=== PATIENT | female | born 1955 | race Caucasian/White ===

== ENCOUNTER 2017-01-16 05:26 | Observation (INO) | payer OTHER ==
[2017-01-16] VITALS (13 sets, daily range): BP systolic 95–125; BP diastolic 46–73; PULSE 72–88; RESP 14–22; Ht 160 cm; Wt 88.7 kg
[~2017-01-16] VITALS: Ht 160 cm; Wt 88.7 kg
[2017-01-16] MEDS ORDERED: LORA-441 PO (05:51)
[2017-01-16] MEDS ORDERED: HYDR-902 PO (05:51)
[2017-01-16] MEDS ORDERED: ZOLP10TA PO (05:51)
[2017-01-16] MEDS ORDERED: TEMA30CA6 PO (05:51)
[2017-01-16] MEDS ORDERED: GLYCOPYRROLATE 1 MG INJ ONE (06:15)
[2017-01-16] MEDS ORDERED: ROCURONIUM 50 MG INJ ONE ×2 (06:15→07:00)
[2017-01-16] MEDS ORDERED: LIDOCAINE 2% (SDV) 5 ML INJ ONE (06:15)
[2017-01-16] MEDS ORDERED: ONDANSETRON 4 MG INJ ONE (06:16)
[2017-01-16] MEDS ORDERED: MIDAZOLAM 1 MG/ML 2 ML INJ ONE (06:16)
[2017-01-16] MEDS ORDERED: NEOSTIGMINE 3 MG/3 ML SYRINGE ONE (06:16)
[2017-01-16] MEDS ORDERED: DEXAMETHASONE 4 MG/ML 1 ML INJ ONE (06:16)
[2017-01-16] MEDS ORDERED: PROPOFOL 20 ML ONE (06:16)
[2017-01-16] MEDS ORDERED: FENTAnyl 50 MCG/ML VIAL ONE ×2 (06:16→12:51)
[2017-01-16] MEDS ORDERED: LIDOCAINE 2%/EPI 30 ML INJ ONE (06:17)
[2017-01-16] MEDS ORDERED: ROPIVACAINE 0.5 % 30 ML VIAL ONE ×2 (06:17→07:04)
[2017-01-16] MEDS ORDERED: SUGAMMADEX SODIUM 200 MG/2 ML VIAL IV ONE (06:19)
[2017-01-16] MEDS ORDERED: MEPERIDINE 25 MG INJ IV PRN (07:00)
[2017-01-16] MEDS ORDERED: HYDROmorphONE (0.2 MG/ML) 10ML SYG IV PRN ×3 (07:00)
[2017-01-16] MEDS ORDERED: ONDANSETRON 4 MG INJ IV PRN ×2 (07:00→12:30)
[2017-01-16] MEDS ORDERED: morphine (1 MG/ML) 10ML SYRINGE IV PRN ×3 (07:00)
[2017-01-16] MEDS ORDERED: hydrALAzine 20 MG INJ IV PRN (07:00)
[2017-01-16] MEDS ORDERED: DIPHENHYDRAMINE 50 MG INJ IV PRN (07:00)
[2017-01-16] MEDS ORDERED: LABETALOL HCL 20MG INJ IV PRN (07:00)
[2017-01-16] MEDS ORDERED: FENTAnyl 50 MCG/ML VIAL IV PRN ×2 (07:00)
[2017-01-16] MEDS ORDERED: CEFAZOLIN 1 GM INJ ONE (07:00)
[2017-01-16] MEDS ORDERED: MIDAZOLAM 1 MG/ML 2 ML INJ IV PRN (07:00)
[2017-01-16] MEDS ORDERED: EPHEDrine SULFATE 50 MG/5 ML SYG IV PRN (07:00)
[2017-01-16] MEDS ORDERED: LACTATED RINGER'S 1,000 ML IV SCH (07:00)
[2017-01-16] MEDS ORDERED: ATROPINE 1 MG/10 ML SYRINGE IV PRN (07:00)
[2017-01-16] MEDS ORDERED: OXYCODONE/ACETAMINOPHEN (5/325) TAB PO PRN ×2 (07:00)
[2017-01-16] MEDS ORDERED: POVIDONE IODINE 10% 28.4 GM OINT ONE (07:04)
[2017-01-16] MEDS ORDERED: POLYMYXIN/BACITRACIN 1L IRRIG ONE (07:04)
[2017-01-16] MEDS ORDERED: METHYLENE BLUE 1% 10 ML INJ ONE (07:04)
--- NOTE | 2017-01-16 07:09 | HPN ---
Date/Time of Note Date/Time of Note DATE: 01/16/17 TIME: 07:09 Interval H&P Admission Note Pt. seen H&P reviewed: No system changes ADILSON MENCHACA MD Jan 16, 2017 07:09
[2017-01-16] MEDS ORDERED: LABETALOL HCL 20MG INJ ONE (10:47)
[2017-01-16] MEDS ORDERED: hydrALAzine 20 MG INJ ONE (10:55)
--- NOTE | 2017-01-16 12:29 | OPPN ---
Date/Time of Note Date/Time of Note DATE: 01/16/17 TIME: 12:27 Operative Report Preoperative Diagnosis Left ankle PTT insufficiency Postoperative Diagnosis same Operation/Procedure Performed Left medial sliding calcaneal osteotomy FDL to navicular transfer PTT tenodesis to FDL spring ligament reefing Provider: ADILSON MENCHACA MD career services assistant: JAIME DAVIDSON MD Anesthesia: general Estimated blood loss: 10 - 50 ml's Specimens PTT tendon Grafts/Implants Synthes 4.5mm cannulated screw x 1, 7.3mm cannulated screw x 1 Complications: None ADILSON MENCHACA MD Jan 16, 2017 12:29
[2017-01-16] MEDS ORDERED: CEFAZOLIN 1 GM INJ IV SCH (12:30)
[2017-01-16] MEDS ORDERED: BISACODYL 10 MG SUPP PR PRN (12:30)
[2017-01-16] MEDS ORDERED: DIPHENHYDRAMINE 25 MG CAP PO PRN (12:30)
[2017-01-16] MEDS: CEFAZOLIN 2 GM/50 ML (PMX) 50 ML IVPB SCH ×2 (13:19→21:00)
[2017-01-16] MEDS: HYDROmorphONE 0.2 MG/ML PCA IV SCH (13:21)
--- NOTE | 2017-01-16 13:30 | RADRPT ---
PROCEDURE: Intraoperative imaging of the left foot with fluoroscopy. CLINICAL INDICATION: Left foot pain. Intraoperative. TECHNIQUE: 6 images of the left foot were obtained in the operating room with an image intensifier . No radiologist was in attendance. Fluoroscopy time is 0.5 minutes. COMPARISON: No prior study is available for comparison. FINDINGS: Images demonstrate osteotomy of the posterior calcaneus with final images demonstrate 2 cannulated s crews transfixing the osteotomy. IMPRESSION: 1. Intraoperative imaging of the left foot. RPTAT: QQ .Lewis Mann MD, Date Time Electronically viewed and signed by .Lewis Mann MD, on 01/16/2017 13:29 .R/
--- NOTE | 2017-01-16 15:02 | OPR ---
DATE OF OPERATION: 01/16/2017 PREOPERATIVE DIAGNOSES: 1. Severe tear of left posterior tibial tendon. 2. Planovalgus foot. 3. Tear to the spring ligament talonavicular capsule. POSTOPERATIVE DIAGNOSES: 1. Severe tear of left posterior tibial tendon. 2. Planovalgus foot. 3. Tear to the spring ligament talonavicular capsule. OPERATIONS PERFORMED: 1. Left medial slide calcaneal osteotomy with screw fixation. 2. Left debridement of the posterior tibial tendon. Significant tear with excision of a large portion of it and tenodesed the rest to the FDL. 3. Left flexor digitorum longus transfer to the navicular. 4. Reefing the spring ligament and talonavicular capsule. 5. Use of fluoroscopy to verify position and alignment of the calcaneal osteotomy and screws. 6. Short-leg cast. SURGEON: Dr. Gabriele Ramos. MOTION GRAPHICS DESIGNER: Dr. Ruddy Vasquez. ANESTHESIA: General with a popliteal block. TOURNIQUET TIME: 1. 1-40. 2. 2-97. OPERATIVE PROCEDURE: Patient taken to the operating room placed supine under satisfactory popliteal block was given and satisfactory general anesthesia administered, 2 g of Ancef was given intravenously. The patient was rolled in the right lateral decubitus position and secured with a kelly bag. Everything was carefully padded. The left foot was prepped and draped in usual manner. A guide pin was used to shawn the appropriate incision 45 degrees angle in the heel and dissection carried down subcutaneous tissue. Bleeders coagulated as encountered. Went down to the actual calcaneal bone. Periosteum was marked with methylene blue using the fluoroscope. An oscillating saw was used to perform a calcaneal osteotomy prior to going through the medial side using the thin osteotome to carefully go through being very careful not to injure the neurovascular structures. The heel was then shifted 8 mm and fixated with one 4.5 cannulated AO screw and one 7.3 cannulated screw. AP and lateral x-ray showed good position and alignment of the screws and of the osteotomy. Final fluoroscopic views looked good on the AP and lateral planes. The wounds irrigated antibiotic solution. A power rasp was used to smooth the edges. The tourniquet was released areas were coagulated and wounds were closed with 3-0 undyed Vicryl, skin with 4-0 black nylon. The wounds were then closed by me. Wounds were then covered sterilely and the second part of the surgery was repaired. The patient was rolled in the supine position. The beanbag was removed. The patient was positioned appropriately. The left leg was then prepped and draped in the usual manner. The tourniquet had been down for 35 minutes. Tourniquet was inflated to 250 mmHg. Incision was made 3 cm above[____] towards the area of the first MTP joint over the posterior tibial tendon. Dissection carried down subcutaneous tissue. Bleeders were coagulated as encountered. The flaps were made with 3-0 undyed Vicryl retracting. Incision was made in the posterior tibial tendon sheath and a lot of fluid came out. The tendon sheath was opened. The tendon was torn severely until was more proximal. The tendon was cut leaving a stump on the navicular and cut proximally, marked with 0 PDS. The FDL was identified in its own tendon sheath. The adductor hallucis was then off the medial plantar border of the foot from the Livan's knot to the MTP joint. Deep tissues were divided, the area where the FDL and FHL crossed was freed up, all the communicating fibers were freed up. Distally the FDL was closed to the FHL with 0 FiberWire with the toes in neutral position. The FDL was then cut and brought out of the wound. The tendon was then sutured with 0 FiberWire. The talonavicular capsule and spring ligament were opened and 0 PDS was placed in a [id number] fashion in these areas, however, they were not tied. Using the guide pin for the 4.0 AO cannulated screw set the guide pin was inserted through the center of the navicular and wired and the 4-5 set was used to enlarge the hole to 4.5 mm. A Hewson suture was passed dorsal plantar, the tendon was brought through the posterior tibial tendon sheath and through the hole in the navicular. The tendon sheath was then closed partially along the medial malleolus with 2-0 PDS so the tendon would not bowstring. Foot was then plantar flexed and inverted. The tendon was then pulled taut with the foot inverted and plantar flexed and 0 FiberWire was used to secure the tendon in the remaining posterior tibial tendon and periosteum. Excellent fixation was obtained. Wounds were irrigated repeatedly with antibiotic solution. The talonavicular capsule was closed with the foot plantar flexed and inverted as was the spring ligament. The healthier portion of the posterior tibial tendon was tenodesed to the FDL with 0 PDS. Tendons were closed with 2-0 PDS running distally, and then in 2-0 PDS distally. The tourniquet was released prior to closing the distal wound. All bleeders were coagulated. Wounds irrigated with antibiotic solution. There was good hemostasis in the knot of Livan. The subcutaneous tissue was closed with 3-0 undyed Vicryl. The skin was closed was with 4-0 black nylon. A saphenous nerve block with 0.5 percent ropivacaine, compression dressing applied, as well as short-leg cast in plantar flexion and inversion. At the end of the procedure the sponge, needle count was correct. The patient tolerated procedure well and brought to recovery room after the cast was split. Dictated By: Gabriele Ramos MD /tegan/srini /Document#: [id number]
[2017-01-16] MEDS: SOD CHLORIDE 0.9% 1,000 ML IV SCH ×2 (19:10→22:24)
[2017-01-16] MEDS: SENNA/DOCUSATE NA (8.6MG/50MG) TAB PO SCH (21:00)
[2017-01-17 02:00] VITALS: BP 120/58; RESP 18
[2017-01-17] MEDS ORDERED: ZOLPIDEM 5 MG TAB PO PRN ×2 (02:30→21:00)
[2017-01-17] MEDS: OXYCODONE/ACETAMINOPHEN (5/325) TAB PO PRN ×3 (02:37→13:43)
[2017-01-17] MEDS: HYDROmorphONE 0.2 MG/ML PCA IV SCH (03:30)
[2017-01-17] MEDS: CEFAZOLIN 2 GM/50 ML (PMX) 50 ML IVPB SCH ×3 (05:07→20:47)
[2017-01-17] MEDS: morphine 10 MG INJ IV PRN ×3 (05:08→20:44)
[2017-01-17] MEDS: SOD CHLORIDE 0.9% 1,000 ML IV SCH ×2 (05:14→18:17)
[2017-01-17 07:45] VITALS: BP 122/68; RESP 19
--- NOTE | 2017-01-17 08:36 | PN ---
Date/Time of Note Date/Time of Note DATE: 01/17/17 TIME: 08:29 Assessment/Plan VTE Prophylaxis VTE Prophylaxis Intervention: SCD's Lines/Catheters IV Catheter Type (from Nrsg): Peripheral IV Assessment/Plan Chief Complaint/Hosp Course Left foot/ankle acquired planovalgus deformity. Problems: Assessment/Plan 61 yo F s/p left flatfoot reconstruction on 01/16/2017 for acquired planovalgus foot deformity Doing well overall. - Continue po pain control - Continue LLE elevation - DVT prophy - PT - Dispo: Discharge home when clears PT Subjective 24 Hr Interval Summary Free Text/Dictation Patient resting in bed this morning complaining of left lower extremity pain that started early this morning after her block wore off. She denies shortness of breath, chest pain, or lower extremity numbness/tingling. She otherwise is without complaints. Constitutional: no complaints Respiratory: no complaints Cardiovascular: no complaints Gastrointestinal: no complaints Exam/Review of Systems Vital Signs Vitals Vital Signs Date Time Temp Pulse Resp B/P Pulse Ox O2 Delivery O2 Flow Rate FiO2 01/17/17 07:45 97.8 81 19 122/68 98 01/16/17 20:00 Nasal Cannula 2.0 Intake and Output 01/16/17 01/16/17 01/17/17 15:00 23:00 07:00 Intake Total 1500 ml 530 ml 1470 ml Output Total 50 ml 520 ml 1200 ml Balance 1450 ml 10 ml 270 ml Exam In general patient resting comfortably in hospital bed in no acute distress. Breathing comfortably on room air. Focused examination of LLE: Elevated on pillows. Short leg cast in place. Patient reports sensation intact to light touch throughout. She is able to wiggle her toes. Toes warm and well perfused. Medications Medications Current Medications Senna/Docusate Sodium (Senokot-S) 1 tab BID PO Last administered on 01/16/17 21:00; Admin Dose 1 TAB; Start 01/16/17 at 21:00 Magnesium Hydroxide (Milk Of Mag) 30 ml HS PO ; Start 01/18/17 at 21:00 Bisacodyl 10 mg 10 mg DAILY PRN [place] CONSTIPATION; Start 01/16/17 at 12:30 Sodium Chloride (NS) 1,000 ml @ 100 mls/hr Q10H IV Last administered on 05:14; Admin Dose 100 MLS/HR; Start 01/16/17 at 12:24 Oxycodone/ Acetaminophen (Percocet (5/ 325)) 2 tab Q4H PRN PO PAIN Last administered on 01/17/17 02:37; Admin Dose 2 TAB; Start 01/16/17 at 12:30 Morphine Sulfate (morphine) 5 mg Q4H PRN IV PAIN LEVEL 7-10 Last administered on 01/17/17 05:08; Admin Dose 5 MG; Start 01/16/17 at 12:30 Ondansetron HCl (Zofran Inj) 4 mg Q4H PRN IV NAUSEA AND/OR VOMITING; Start at 12:30 Diphenhydramine HCl (Benadryl) 25 mg Q4H PRN PO ITCHING Last administered on 23:18; Admin Dose 25 MG; Start 01/16/17 at 12:30 Hydromorphone HCl 0.2 mg 0.2 mg Q4PCA IV Last administered on 01/17/17 03:30; Admin Dose 6 MG; Start 01/16/17 at 12:30 Cefazolin Sodium/ Dextrose (Ancef 2 Gm/50 ml (Pmx)) 50 ml @ 100 mls/hr Q8H IVPB Last administered on 01/17/17 05:07; Admin Dose 100 MLS/HR; Start at 13:00; Stop 01/18/17 at 05:29 Zolpidem Tartrate (Ambien) 10 mg HS PRN PO INSOMNIA; Start 01/17/17 at 21:00 ADILSON MENCHACA MD Jan 17, 2017 08:36
[2017-01-17] MEDS: SENNA/DOCUSATE NA (8.6MG/50MG) TAB PO SCH ×2 (08:57→20:45)
[2017-01-17 14:40] VITALS: BP 120/67; RESP 19
[2017-01-17] MEDS: RIVAROXABAN 10 MG TABLET PO SCH (18:14)
[2017-01-17] MEDS: OXYCODONE/ACETAMINOPHEN (10/325) TAB PO PRN (18:14)
[2017-01-17 19:59] VITALS: BP 137/65; RESP 20
--- NOTE | 2017-01-18 01:32 | OPR ---
DATE OF OPERATION: 01/16/2017 ADDENDUM The missing word in the operative report is medial malleolus. PSYCHOLOGIST EDUCATIONAL: Orthopedic surgeon. During the, surgery teacher orthopedic surgeon was used at my request. The blood donor unit assistant helped by putting the screws in while I held the calcaneal osteotomy reduced. In addition, the blood donor unit assistant tied in the flexor tendon while I held the foot plantar flexed and inverted. Without a skilled orthopedic surgeon blood donor unit assistant, this procedure could not be done and they should be compensated appropriately. Dictated By: Gabriele Ramos MD /tegan/patience /Document#: [id number]
[2017-01-18 02:33] VITALS: BP 132/60; RESP 18
[2017-01-18] MEDS: SOD CHLORIDE 0.9% 1,000 ML IV SCH ×2 (04:24→14:03)
[2017-01-18] MEDS: CEFAZOLIN 2 GM/50 ML (PMX) 50 ML IVPB SCH (05:00)
--- NOTE | 2017-01-18 06:49 | PN ---
Date/Time of Note Date/Time of Note DATE: 01/18/17 TIME: 06:46 Assessment/Plan VTE Prophylaxis VTE Prophylaxis Intervention: ambulation, SCD's Lines/Catheters IV Catheter Type (from Nrsg): Peripheral IV Urinary Cath still in place: No Assessment/Plan Chief Complaint/Hosp Course Left foot/ankle acquired planovalgus deformity. Problems: Assessment/Plan 61 yo F s/p left flatfoot reconstruction on 01/16/2017 for acquired planovalgus foot deformity Doing well overall. 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 Pain well controlled. Denies nausea/vomiting, chest pain, or SOB. Would like to go home today if clears PT. Constitutional: no complaints Respiratory: no complaints Cardiovascular: no complaints Gastrointestinal: no complaints Neurologic: no complaints Exam/Review of Systems Vital Signs Vitals Vital Signs Date Time Temp Pulse Resp B/P Pulse Ox O2 Delivery O2 Flow Rate FiO2 01/18/17 05:00 18 01/18/17 02:33 98.2 132/60 98 01/17/17 20:35 Nasal Cannula 2.0 01/17/17 19:59 80 Intake and Output 01/17/17 01/17/17 01/18/17 15:00 23:00 07:00 Intake Total 50 ml 2130 ml 1680 ml Output Total 1000 ml 1600 ml Balance 50 ml 1130 ml 80 ml Exam In general in NAD. Resting comfortably in bed with leg elevated. LLE: Short leg cast in place. Elevated. Patient able to wiggle toes. SILT in toes distally. Toes warm and well perfused. Medications Medications Current Medications Senna/Docusate Sodium (Senokot-S) 1 tab BID PO Last administered on 01/17/17 20 :45; Admin Dose 1 TAB; Start 01/16/17 at 21:00 Magnesium Hydroxide (Milk Of Mag) 30 ml HS PO ; Start 01/18/17 at 21:00 Bisacodyl 10 mg 10 mg DAILY PRN [place] CONSTIPATION; Start 01/16/17 at 12:30 Sodium Chloride (NS) 1,000 ml @ 100 mls/hr Q10H IV Last administered on 18:17; Admin Dose 100 MLS/HR; Start 01/16/17 at 12:24 Morphine Sulfate (morphine) 5 mg Q4H PRN IV PAIN LEVEL 7-10 Last administered on 01/17/17 20:44; Admin Dose 5 MG; Start 01/16/17 at 12:30 Ondansetron HCl (Zofran Inj) 4 mg Q4H PRN IV NAUSEA AND/OR VOMITING; Start at 12:30 Diphenhydramine HCl (Benadryl) 25 mg Q4H PRN PO ITCHING Last administered on 23:18; Admin Dose 25 MG; Start 01/16/17 at 12:30 Zolpidem Tartrate (Ambien) 10 mg HS PRN PO INSOMNIA Last administered on 22:32; Admin Dose 10 MG; Start 01/17/17 at 21:00 Oxycodone/ Acetaminophen (Endocet (10/ 325)) 2 tab Q4H PRN PO PAIN Last administered on 01/17/17 18:14; Admin Dose 2 TAB; Start 01/17/17 at 14:30 ADILSON MENCHACA MD Jan 18, 2017 06:49
[2017-01-18] MEDS: OXYCODONE/ACETAMINOPHEN (10/325) TAB PO PRN ×3 (08:33→17:00)
[2017-01-18] MEDS: SENNA/DOCUSATE NA (8.6MG/50MG) TAB PO SCH (08:33)
[2017-01-18 08:37] VITALS: BP 130/70; RESP 20
[2017-01-18 15:15] VITALS: BP 118/75; RESP 18
[2017-01-18] MEDS: RIVAROXABAN 10 MG TABLET PO SCH (17:00)
--- NOTE | 2017-01-18 18:12 | DS ---
DATE OF ADMISSION: 01/16/2017 DATE OF DISCHARGE: 01/18/2017 DISCHARGE DIAGNOSES: 1. Complete tear of the left posterior tibial tendon. 2. Loretto valgus hindfoot deformity. 3. Stretching out of the spring ligament and talonavicular capsule surgery on January 16 with left medial sliding calcaneal osteotomy with screw fixation. 4. Will transfer the flexor digitorum longus to the navicular. 5. Reefing the spring ligament and talonavicular capsule. 6. Reduce the posterior tibial tendon remnant to the flexor digitorum longus. HISTORY OF PRESENT ILLNESS: The patient is a 61-year-old female with a long history of pain and deformity in her left hindfoot. Workup revealed a complete tear of the anterior posterior tibial tendon and tearing of the spring ligament talonavicular capsule admitted for reconstruction. PAST MEDICAL HISTORY: See the history and physical records. PHYSICAL EXAMINATION: Normal orthopedic examination which revealed swelling and severe pain along the posterior tibial tendon. She had a significant pes planus and rear foot valgus. She cannot go on her tip toes. She has a positive too many toe sign and she cannot do a single toe raise LABORATORY DATA: Normal chest x-ray. EKG was stable. HOSPITAL COURSE: Patient taken to the operating room and underwent above procedure. Postoperatively, she was up ambulating the 1st postoperative day with a walker and is being discharged on the 2nd postoperative day on pain medication and Valium. To be followed in the office in 1 week. Dictated By: Gabriele Ramos MD /tegan/adriana /Document#: [id number]
[2017-01-18] MEDS ORDERED: MAGNESIUM HYDROXIDE 30ML CUP PO SCH (21:00)
== END 2017-01-18 17:02 | disposition home or self-care (01) ==
LOC: SDS 05:26 → EDSTATUS 10:38 → SDS 12:27 → MS1 12:27
PROVIDERS: ADMIT Orthopaedic Surgery; ATTEND Orthopaedic Surgery
DX: S96.812A Strain of other specified muscles and tendons at ankle and foot level, left foot, initial encounter (principal); M21.072 Valgus deformity, not elsewhere classified, left ankle; K21.9 Gastro-esophageal reflux disease without esophagitis; F41.9 Anxiety disorder, unspecified; G47.30 Sleep apnea, unspecified; X58.XXXA Exposure to other specified factors, initial encounter
CPT/HCPCS: 27691; 27899; 28300; 28899; 73630; 97116; 97163; 97530; C1713; G0378; J0360; J0690; J1100; J1170; J2250; J2270; J2405; J2795; J3010; J7030; J2710